=== PATIENT | male | born 1990 | race Two or more races ===

== ENCOUNTER 2017-03-06 05:54 | Emergency (ER) | payer OTHER ==
[~2017-03-06] VITALS: Ht 172.7 cm; Wt 90.7 kg
[2017-03-06] MEDS ORDERED: ONDANSETRON HCL 4 MG/2 ML VIAL IV ONE (09:30)
[2017-03-06] MEDS ORDERED: HYDROmorphone HCL 2 MG/ML VL IV ONE (09:30)
[2017-03-06] MEDS ORDERED: LIDOCAINE 1% HCL (LOCAL ANESTH.) INJ 20ML MDV ID ONE (10:15)
[2017-03-06] MEDS ORDERED: TETANUS-DIPTH-ACEL PERTUSSIS 0.5ML SYRG IM ONE (10:15)
[2017-03-06] MEDS ORDERED: BACITRACIN TOP OINT 1 UD PKG TOP ONE (11:15)
[2017-03-06 12:25] VITALS: BP 126/69
== END 2017-03-06 12:39 | disposition short-term general hospital (02) ==
LOC: EDBD 05:54 → ER 05:54
DX: S92.312A Displaced fracture of first metatarsal bone, left foot, initial encounter for closed fracture (principal); S81.812A Laceration without foreign body, left lower leg, initial encounter; X58.XXXA Exposure to other specified factors, initial encounter; Y93.89 Activity, other specified; Y99.8 Other external cause status; Y92.89 Other specified places as the place of occurrence of the external cause
CPT/HCPCS: 12002; 29515; 73590; 73630; 90471; 90715; 96374; 96375; 99285; J1170; J2001; J2405